=== PATIENT | female | born 1960 | race Caucasian/White ===

== ENCOUNTER 2017-07-07 10:07 | Observation (INO) | payer BC ==
[~2017-07-07] VITALS: Ht 167.6 cm; Wt 77.1 kg
[~2017-07-07 10:07] MED LIST: CARISOPRODOL350 MG PO; VITAMIN D1000 UNI1 PO
--- OUTSIDE RECORDS SUMMARY | 2017-07-07 10:10 | XMS REPORT ---
Author Author [facility] Address Unknown Phone Unavailable Care Team Providers Care Frit Coater Name Role Phone ROSENDO PRAJAPATI Unavailable Unavailable JOSE JUAN FERGUSON Unavailable Unavailable Problems This patient has no known problems. Allergies, Adverse Reactions, Alerts This patient has no known allergies or adverse reactions. Medications This patient has no known medications. Results Test Description Test Time Test Comments Text Results Atomic Results Result Comments CHEST 2 VIEWS [place] [address] Patient Name: ALICJA KAUR MR #: [id number] : 1960 Age/Sex: 56/F Req #: [id number] [facility] Physician: ROSENDO PRAJAPATI MD Ordered by: STAS LAROSE MD Report #: [id number] Location: MED/SURG Room/Bed: [facility] __ Procedure: [id number] DX/CHEST 2 VIEWS Exam Date: 04/08/17 Exam Time: 0553 REPORT STATUS: Signed EXAM: CHEST 2 VIEWS , PA and lateral DATE: 04/08/2017 6:00 AM Time stamp on exam: 0553 hours INDICATION: Right lung mass postbiopsy COMPARISON: AP view of the chest April 07, 2017 at 1419 hours FINDINGS: LINES/TUBES: None LUNGS: Stable airspace opacity/mass right lung base and right upper lateral chest PLEURA: Stable trace right apical pneumothorax. Trace right pleural effusion. HEART AND MEDIASTINUM: Stable right hilar enlargement. BONES AND SOFT TISSUES: No acute findings. IMPRESSION: No interval change. Stable trace right apical pneumothorax. Signed by: Dr. Pretty Knight M.D. on 04/08/2017 7:02 AM Dictated By: PRETTY KNIGHT MD 1 Transcribed By : JANEEN on 04/08/17701 COPY TO: STAS LAROSE MD IR CONSULT [place] [address] Patient Name: ALICJA KAUR MR #: [id number] : 1960 Age/Sex: 56/F Req #: [id number] [facility] Physician: ROSENDO PRAJAPATI MD Ordered by: KAREEM KEY MD Report #: [id number] Location: MED/SURG Room/Bed: [facility] _ Procedure: [id number] DX/IR CONSULT Exam Date: Exam Time: REPORT STATUS: Signed PROCEDURE: CT GUIDED NEEDLE PLACEMENT COMPARISON: None. INDICATIONS: RIGHT LOWER LOBE MASS FINDINGS: Written and verbal consent were obtained. Patient was placed supine. Preliminary axial images of the chest identified the mass in the right lower lobe. A safe entry route was identified and the overlying skin was prepped and draped in usual sterile fashion. Lidocaine 1% was used for local pain control. External guidelines were utilized to localize the lesion. The right upper chest wall was prepped and draped in the usual sterile fashion. 1% lidocaine was infused into the subcutaneous tissues for local anesthesia. A 19 gauge guided instrument was advanced into the mass. Axial images confirm proper position of the needle tip within the lesion. A fine-needle aspiration biopsy samples x3 were obtained with 20 gauge needles. The specimens were given to pathology, who was a bedside. Core biopsy samples x8 were obtained with the 20 gauge 2 cm throw biopsy instrument. Specimens were given to pathology. The pathologist determined the specimens to be of proper cellularity for diagnosis. Upon completion of the procedure, the needles were removed. A trace pneumothorax was visualized upon completion of the procedure. An upright PA chest radiograph was ordered. A sterile dressing was applied. There were no immediate complications. The patient tolerated the procedure well. The patient was transferred to the post procedure area in stable unchanged condition for further monitoring. The patient tolerated the procedure well, and there were no immediate post-procedural complications. CONCLUSION: Successful CT-guided fine needle aspiration and core biopsy of the right lung mass. Dictated by: Lindsey Clifford M.D. on 04/07/2017 at 13:59 Electronically approved by: Lindsey Clifford M.D. on 04/07/2017 at 13:59 Dictated By: LINDSEY CLIFFORD MD 1356 Transcribed By: SHARON on 04/07/17 1350 COPY TO: KAREEM KEY MD CHEST XRAY POST PROCEDURE [place] [address] Patient Name: ALICJA KAUR MR #: [id number] : 1960 Age/Sex: 56/F Req #: [id number] [facility] Physician: ROSENDO PRAJAPATI MD Ordered by: LINDSEY CLIFFORD MD Report #: [id number] Location: MED/SURG Room/Bed: [facility] __ Procedure: [id number] DX/CHEST XRAY POST PROCEDURE Exam Date: Exam Time: REPORT STATUS: Signed PROCEDURE: CHEST XRAY POST PROCEDURE COMPARISON: None. INDICATIONS: POST LUNG BIOPSY FINDINGS: LUNGS: Stable right lung mass. The left lung is clear. PLEURA: Small right apical pneumothorax, measuring 3.9 mm in the right midclavicular line. HEART T MEDIASTINUM: The heart is within normal size-limits. BONES T SOFT TISSUES: No acute findings. CONCLUSION: Small right apical pneumothorax status post lung biopsy. The findings were discussed with the nurse taking care of the patient at 1450 hrs on 04/07/2017. Dictated by: Lindsey Clifford M.D. on 04/07/2017 at 14:53 Electronically approved by: Lindsey Clifford M.D. on 04/07/2017 at 14:53 Dictated By: LINDSEY CLIFFORD MD 52 Transcribed By: SHARON on 04/07/171452 COPY TO: LINDSEY CLIFFORD MD CHEST XRAY POST PROCEDURE [place] [address] Patient Name: ALICJA KAUR MR #: [id number] : 1960 Age/Sex: 56/F Req #: [id number] Adm Physician: ROSENDO PRAJAPATI MD Ordered by: LINDSEY CLIFFORD MD Report #: [id number] Location: MED/SURG Room/Bed: [facility] __ Procedure: [id number] DX/CHEST XRAY POST PROCEDURE Exam Date: Exam Time: REPORT STATUS: Signed PROCEDURE: CHEST XRAY POST PROCEDURE COMPARISON: CT chest 04/05/2017. INDICATIONS: STATUS POST LUNG BIOPSY FINDINGS: LUNGS: Stable mass in the right lower lobe. The left lung is clear. PLEURA: No effusions or pneumothorax. HEART T MEDIASTINUM: The heart is within normal size -limits. Right hilar lymphadenopathy. BONES T SOFT TISSUES: No acute findings. CONCLUSION: Right lung mass. No pneumothorax status post biopsy. Dictated by: Lindsey Clifford M.D. on 04/07/2017 at 11:59 Electronically approved by: Lindsey Clifford M.D. on 04/07/2017 at 11: 59 Dictated By: LINDSEY CLIFFORD MD 115 Transcribed By: SHARON on 04/07/17 1159 COPY TO: LINDSEY CLIFFORD MD CT GUIDED BIOPSY/ASPIR/INJ/PEPE [place] [address] Patient Name: ALICJA KAUR MR #: [id number] : 1960 Age/Sex: 56/F Req #: [id number] [facility] Physician: ROSENDO PRAJAPATI MD Ordered by: KAREEM KEY MD Report #: [id number] Location: MED/SURG Room/Bed: [facility] __ Procedure: [id number] CT/CT GUIDED BIOPSY/ASPIR/INJ/PEPE Exam Date: 04/07/17 Exam Time: 1023 REPORT STATUS: Signed PROCEDURE: CT GUIDED NEEDLE PLACEMENT COMPARISON: None. INDICATIONS: RIGHT LOWER LOBE MASS FINDINGS: Written and verbal consent were obtained. Patient was placed supine. Preliminary axial images of the chest identified the mass in the right lower lobe. A safe entry route was identified and the overlying skin was prepped and draped in usual sterile fashion. Lidocaine 1% was used for local pain control. External guidelines were utilized to localize the lesion. The right upper chest wall was prepped and draped in the usual sterile fashion. 1% lidocaine was infused into the subcutaneous tissues for local anesthesia. A 19 gauge guided instrument was advanced into the mass. Axial images confirm proper position of the needle tip within the lesion. A fine-needle aspiration biopsy samples x3 were obtained with 20 gauge needles. The specimens were given to pathology, who was a bedside. Core biopsy samples x8 were obtained with the 20 gauge 2 cm throw biopsy instrument. Specimens were given to pathology. The pathologist determined the specimens to be of proper cellularity for diagnosis. Upon completion of the procedure, the needles were removed. A trace pneumothorax was visualized upon completion of the procedure. An upright PA chest radiograph was ordered. A sterile dressing was applied. There were no immediate complications. The patient tolerated the procedure well. The patient was transferred to the post procedure area in stable unchanged condition for further monitoring. The patient tolerated the procedure well, and there were no immediate post-procedural complications. CONCLUSION: Successful CT-guided fine needle aspiration and core biopsy of the right lung mass. Dictated by: Lindsey Clifford M.D. on 04/07/2017 at 13:59 Electronically approved by: Lindsey Clifford M.D. on 04/07/2017 at 13:59 Dictated By: LINDSEY CLIFFORD MD 135 Transcribed By: SHARON on 04/07/17 1359 COPY TO: KAREEM KEY MD BIOPSY LUNG [place] [address] Patient Name: ALICJA KAUR MR #: [id number] : 1960 Age/Sex: 56/F Req #: [id number] Adm Physician: ROSENDO PRAJAPATI MD Ordered by: KAREEM KEY MD Report #: [id number] Location: MED/SURG Room/Bed: [facility] _ Procedure: [id number] IR/BIOPSY LUNG Exam Date: 04/07/17 Exam Time: 1023 REPORT STATUS: Signed PROCEDURE: CT GUIDED NEEDLE PLACEMENT COMPARISON: None. INDICATIONS: RIGHT LOWER LOBE MASS FINDINGS: Written and verbal consent were obtained. Patient was placed supine. Preliminary axial images of the chest identified the mass in the right lower lobe. A safe entry route was identified and the overlying skin was prepped and draped in usual sterile fashion. Lidocaine 1% was used for local pain control. External guidelines were utilized to localize the lesion. The right upper chest wall was prepped and draped in the usual sterile fashion. 1% lidocaine was infused into the subcutaneous tissues for local anesthesia. A 19 gauge guided instrument was advanced into the mass. Axial images confirm proper position of the needle tip within the lesion. A fine-needle aspiration biopsy samples x3 were obtained with 20 gauge needles. The specimens were given to pathology, who was a bedside. Core biopsy samples x8 were obtained with the 20 gauge 2 cm throw biopsy instrument. Specimens were given to pathology. The pathologist determined the specimens to be of proper cellularity for diagnosis. Upon completion of the procedure, the needles were removed. A trace pneumothorax was visualized upon completion of the procedure. An upright PA chest radiograph was ordered. A sterile dressing was applied. There were no immediate complications. The patient tolerated the procedure well. The patient was transferred to the post procedure area in stable unchanged condition for further monitoring. The patient tolerated the procedure well, and there were no immediate post-procedural complications. CONCLUSION: Successful CT-guided fine needle aspiration and core biopsy of the right lung mass. Dictated by: Lindsey Clifford M.D. on 04/07/2017 at 13:59 Electronically approved by: Lindsey Clifford M.D. on 04/07/2017 at 13:59 Dictated By: LINDSEY CLIFFORD MD 1353 Transcribed By: SHARON on 04/07/17 1359 COPY TO: KAREEM KEY MD CT CHEST W [place] [address] Patient Name: ALICJA KAUR MR #: [id number] : 1960 Age/Sex: 56/F Req # : [id number] Adm Physician: Ordered by: JOSE JUAN FERGUSON MD Report #: [id number] Location: ER Room/Bed: Procedure: [id number] CT/CT CHEST W Exam Date: 04/05/17 Exam Time: 1254 REPORT STATUS: Signed PROCEDURE: CT scan of the chest WITH intravenous contrast, using standard protocol. TECHNIQUE: The chest was scanned utilizing a multidetector helical scanner from the lung apex through the level of the adrenal glands after the IV administration of 100 cc of Isovue 370. Coronal and sagittal multiplanar reformations were obtained. COMPARISON: None. INDICATIONS: ABNORMAL CHEST X-RAY, PULMONARY NODULES FINDINGS: Lines/tubes: None. Lungs and Airways: Focal 1 cm mass in the right middle lobe, series 3 image 74. The mass extends along the medial pleural margin, series 3 image 76. 1.05 cm nodule in the right upper lobe, series 3 image 23. Focal wedge-shaped airspace opacity in the right upper lobe, series 3 image 54. Pleura: Small right pleural effusion. Heart and mediastinum: Extensive right hilar and subcarinal lymphadenopathy is present, series 2 image 56. Additional lymphadenopathy is present along the right paratracheal region, series 2 image 37. Atherosclerotic calcifications are present in the thoracic aorta and coronary arteries. The thyroid gland is normal. The heart and pericardium are within normal limits. Soft tissues: Normal. Abdomen: Limited contrast-enhanced views of the upper abdomen show no abnormality within the visualized liver, spleen, pancreas, or kidneys. 1.7 cm nodule is present in the right thyroid lobe, series 2 image 109. Bones : Degenerative changes of the thoracic spine. IMPRESSION: Right middle lobe lung mass with mediastinal lymphadenopathy concerning for malignancy. Nodule in the right upper lobe may represent a satellite lesion. Right adrenal nodule may represent metastatic disease. Dictated by : Lindsey Clifford M.D. on 04/05/2017 at 14:21 Electronically approved by: Lindsey Clifford M.D. on 04/05/2017 at 14:21 Dictated By: LINDSEY CLIFFORD MD 1421 Transcribed By: SHARON on 04/05/17 1421 COPY TO: JOSE JUAN FERGUSON MD CHEST 2 VIEWS [facility] [address] [place] [address] Patient Name: ALICJA KAUR MR #: [id number] : 1960 Age/Sex: 56/F Req #: [id number] Adm Physician: Ordered by: JOSE JUAN FERGUSON MD Report #: [id number] Location: ER Room/Bed: Procedure: [id number] DX/CHEST 2 VIEWS Exam Date: 04/05/17 Exam Time: 0940 REPORT STATUS: Signed PROCEDURE: CHEST 2 VIEWS TECHNIQUE: PA and lateral chest INDICATION: Ribs hurt; coughing blood COMPARISON: [facility], DX, CHEST 2 VIEWS, 09/23/2012, 10:28. FINDINGS : 3.1 x 4.2 x 4.6 cm right middle lobe mass. 3 cm right upper lobe mass with adjacent airspace opacity. Lungs are otherwise clear. No pleural effusions. Normal heart size. Enlarged right hilum. Intact skeleton. CONCLUSION: 1. Multiple large right lung pulmonary nodules suggesting metastasis or primary lung malignancy. 2. Large right hilum consistent with lymphadenopathy. 3. Airspace opacity around the right upper lobe nodule suggesting pulmonary hemorrhage in the setting of hemoptysis. 4. CT chest with contrast is recommended for evaluation. Dictated by: Zaira Montana M.D. on 04/05/2017 at 10:08 Electronically approved by: Zaira Montana M.D. on 04/05/2017 at 10:08 Dictated By: ZAIRA MONTANA MD 1008 Transcribed By: SHARON on 04/05/17 1008 COPY TO: JOSE JUAN FERGUSON MD
[2017-07-07] MEDS ORDERED: SODIUM CHLORIDE 0.9% 1000ML 1,000 ML IV STA (11:17)
[2017-07-07 11:39] LABS: EOSINOPHILS # (AUTO) 0.1 (0.0-0.4); EOSINOPHILS % 6.1 % (0.0-6.0); HEMOGLOBIN 8.1 g/dL (12.0-16.0); LYMPHOCYTES # (AUTO) 0.2 (1.0-3.2); LYMPHOCYTES % 14.9 % (18.0-39.1); MEAN CORPUSCULAR HEMOGLOBIN 30.3 pg (28-32); MEAN CORPUSCULAR HGB CONC 35.5 g/dL (31-35); MEAN CORPUSCULAR VOLUME 85.4 fL (81-99); MONOCYTES # (AUTO) 0.6 (0.2-0.8); MONOCYTES % 39.9 % (4.4-11.3); NEUTROPHILS # (AUTO) 0.6 (2.1-6.9); NEUTROPHILS % 38.4 % (38.7-80.0); PLATELET COUNT 73 x10e3/uL (140-360); RED BLOOD COUNT 2.67 x10e6/uL (3.6-5.1); RED CELL DISTRIBUTION WIDTH 18.1 % (11.7-14.4)
[2017-07-07 11:42] LABS: ALANINE AMINOTRANSFERASE 13 IU/L (0-55); ALBUMIN 3.2 g/dL (3.5-5.0); ALBUMIN/GLOBULIN RATIO 0.8 (0.8-2.0); ALKALINE PHOSPHATASE 70 IU/L (40-150); BLOOD UREA NITROGEN 16 mg/dL (7-26); BUN/CREATININE RATIO 18 (6-25); CALCIUM 8.2 mg/dL (8.4-10.2); CREATINE KINASE 428 IU/L (29-168); CREATININE, SERUM 0.91 mg/dL (0.57-1.11); EST GLOMERULAR FILTRATION RATE > 60 ML/MIN (60-); GLUCOSE 109 mg/dL (74-118)
[2017-07-07 11:45] LABS: HEMATOCRIT 22.8 % (34.2-44.1)
[2017-07-07 11:53] LABS: CARBON DIOXIDE 30 mmol/L (22-29); CHLORIDE 91 mmol/L (98-107); SODIUM 136 mmol/L (136-145)
--- NOTE | 2017-07-07 12:04 | Diagnostic Imaging Report ---
PROCEDURE: A single AP view of the chest. COMPARISON: Chest 2 views 04/08/2017. INDICATIONS: LUNG CANCER/DEHYDRATION/WEAKNESS FINDINGS: Lines/tubes: None. Lungs: The lungs are well inflated and clear. There is no evidence of pneumonia or pulmonary edema. Pleura: There is no pleural effusion or pneumothorax. Elevation of the left hemidiaphragm. Heart and mediastinum: The heart and the mediastinum are unremarkable. Bones: No acute bony abnormality. IMPRESSION: Elevation of the left hemidiaphragm. Otherwise, no acute radiographic abnormality. Dictated by: Jack Cantu M.D. on 07/07/2017 at 12:04 Electronically approved by: Jack Cantu M.D. on 07/07/2017 at 12:04
[2017-07-07 12:05] LABS: ANION GAP 17.8 mmol/L (8-16)
[2017-07-07 12:06] LABS: POTASSIUM 2.8 mmol/L (3.5-5.1)
[2017-07-07] MEDS ORDERED: PROMETHAZINE 12.5MG/ NACL 0.9% 12.5 MG/50 ML BAG IV ONE (12:30)
[2017-07-07] MEDS ORDERED: POTASSIUM CHLORIDE 10 MEQ TABCR PO ONE (12:30)
[2017-07-07] MEDS ORDERED: KETOROLAC TROMETHAMINE 30 MG/ML VIAL IV STA (12:45)
[2017-07-07] MEDS ORDERED: FILGRASTIM 300 MCG/ML VIAL SC STA (13:00)
[2017-07-07 13:44] LABS: BILIRUBIN,URINE NEGATIVE (NEGATIVE); KETONES,URINE NEGATIVE (NEGATIVE); LEUKOCYTE ESTERASE ,URINE NEGATIVE (NEGATIVE); NITRITE,URINE NEGATIVE (NEGATIVE); PROTEIN,URINE DIPSTICK NEGATIVE (NEGATIVE); URINE UROBILINOGEN 0.2 mg/dL (0.2 - 1)
[2017-07-07 13:51] LABS: CLARITY,URINE SL CLOUDY (CLEAR); COLOR,URINE YELLOW (YELLOW)
[2017-07-07] MEDS ORDERED: POTASSIUM CHLORIDE 10MEQ/100ML 10 MEQ in POTASSIUM CHLORIDE 10MEQ/100ML 100 ML IV ONE (13:52)
[2017-07-07] MEDS ORDERED: POTASSIUM CHLORIDE 10MEQ/100ML 100 ML IV SCH ×2 (14:00→14:03)
[2017-07-07] MEDS: CEFEPIME HCL 1 GM VIAL IV SCH (14:05)
[2017-07-07 14:14] LABS: WBC,URINE (MAN) 0-5 /HPF (0-5)
[2017-07-07 14:15] LABS: BACTERIA,URINE FEW /HPF; EPITHELIAL CELLS,URINE FEW /LPF
[2017-07-07 14:37] LABS: BAND NEUTROPHILS % (MANUAL) 1 %; EOSINOPHILS % (MANUAL) 1 % (0-7); LYMPHOCYTES % (MANUAL) 25 % (19-48); MONOCYTES % (MANUAL) 5 % (3.4-9.0); NEUTROPHILS % (MANUAL) 62 % (40-74)
[2017-07-07 14:38] LABS: PLATELET MORPHOLOGY COMMENT FEW LARGE
[2017-07-07 14:39] LABS: ANISOCYTOSIS SLIGHT; PLATELET ESTIMATE MODERATELY DECREASED; RBC MORPHOLOGY COMMENT NORMAL
[2017-07-07] MEDS: D5NS/KCL 20MEQ 1,000 ML IV SCH (14:40)
[2017-07-07] MEDS ORDERED: POTASSIUM CHLORIDE 250 ML IV SCH (14:45)
[2017-07-07] MEDS ORDERED: ZOFRAN ODT8 MG PO (15:14)
[2017-07-07 15:38] VITALS: BP 112/67
[2017-07-07 16:25] VITALS: BP 112/67
[2017-07-07 16:28] VITALS: BP 112/67
[2017-07-07] MEDS ORDERED: PANTOPRAZOLE 40 MG 10ML VIAL IV SCH (17:00)
[2017-07-07] MEDS: SUCRALFATE 1 GM TAB PO SCH ×2 (17:27→21:36)
[2017-07-07] MEDS: PANTOPRAZOLE 40 MG 10ML VIAL IV SCH (17:27)
--- NOTE | 2017-07-07 17:38 | History and Physical ---
CHIEF COMPLAINT: This 56-year-old female with a history of lung cancer, small cell, comes in with intractable nausea and vomiting. HISTORY OF PRESENTING ILLNESS: This is Ms. Britt Pang, history of hyperlipidemia and history of lung cancer, small cell, who was in her usual state of health until the patient had her last round of chemo and she had nausea which was intractable with retching. So, patient has been tried on several courses of Zofran. It was not helping and on antibiotic, and patient did not feel any better, came into the emergency room and was found to have neutropenia and gastritis and admitted for the same. MEDICAL HISTORY: History of HLD. She is not taking any medicine for that. Small cell cancer, which obtained treatment by chemotherapy with Dr. Bañuelos. PAST SURGICAL HISTORY: Patient has had 3 back surgeries, hysterectomy, and also tonsillectomy and adenoidectomy when she was young. SOCIAL HISTORY: No history of ETOH or IV drug abuse. She stopped smoking after the diagnosis of lung cancer. REVIEW OF SYSTEMS: Negative for chest pain. Positive for some shortness of breath, especially after retching. Positive for some nausea and vomiting. No diarrhea. No rectal bleeding. No hematochezia, no hematemesis. No blurry vision, no diplopia. No paresthesias. PHYSICAL EXAMINATION GENERAL: Patient is alert and oriented x3. Very frail-looking. Has loss of hair from chemo. VITAL SIGNS: Temperature is 97.6. Pulse rate of 116, tachycardic. Respiration of 19. Pulse oximetry of 96%. HEENT: Normocephalic, atraumatic. Pupils react to light and accommodation. CARDIOVASCULAR: S1 normal. Regular rhythm. Positive for tachycardia. ABDOMEN: Tender in the epigastrium. Otherwise no rebound and no surgical belly. EXTREMITIES: No clubbing. Trace edema. LABORATORY VALUES: Patient's white count was 1.48, hemoglobin of 8.1 and hematocrit of 22.8, platelet count 73, RDW 18.1, and she seems to have pancytopenia. Electrolytes: Patient's sodium is 136, potassium is 2.8, BUN is 15, creatinine 0.91. CK was 428. Urine essentially with no white count and no leukocyte esterase either. IMAGING STUDIES: Chest x-ray shows elevation of the left hemidiaphragm, otherwise no acute radiographic abnormalities. ASSESSMENT: Intractable nausea and vomiting. The patient also has tachycardia and neutropenia. Patient has been given Neupogen. Dr. Bañuelos will be consulted. Will go ahead and keep the patient on IV Phenergan, too, as needed and, also, the patient has been put on cefepime and pantoprazole for neutropenia. Patient will also be on Carafate 1 g a.c. nightly. Further recommendation on clinical course. Will continue to monitor the patient and her lytes in the morning and her white count. Dr. Bañuelos is on consult, and we will continue to follow her. Job#: [id number] EV
[2017-07-07] MEDS ORDERED: SODIUM CHLORIDE 0.9% 250ML 250 ML IV ONE (17:45)
[2017-07-07] MEDS ORDERED: ONDANSETRON HCL INJ 2 MG/ML VIAL IV PRN (17:45)
[2017-07-07] MEDS ORDERED: HYDROCODONE/APAP 5MG-325MG TAB PO PRN (17:45)
[2017-07-07] MEDS ORDERED: FUROSEMIDE INJ 10 MG/ML 2 ML VIAL IV PRN (17:45)
--- NOTE | 2017-07-07 18:54 | Consultation ---
DATE OF CONSULTATION: July 07, 2017 REASON FOR CONSULTATION: Followup of carcinoma of the lung, on chemotherapy and radiation. Thank you very kindly, Dr. Stafford, for letting me participate in the care of this very pleasant 56-year-old female who is well known to me. 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 She called me early in the morning stating that she is feeling very poorly with body aches, chills, but did not have any fever. She has not been able to eat and has been having nausea and vomiting small amounts. There is no history of bleeding. No history of chest pain. She had some dry cough, but no sputum production. No history of urinary symptoms. No history of diarrhea. FAMILY HISTORY: As recorded in the chart. She is currently on radiation. Her chemotherapy was on hold this week because of neutropenia. PHYSICAL EXAMINATION GENERAL: Revealed an ill-looking female pale. VITAL SIGNS: As recorded in the chart. HEENT: There is no icterus. There is no palpable adenopathy. LUNGS: Revealed prolonged expiration. HEART: Size appeared within normal limits. Rhythm was regular. ABDOMEN: Mildly distended but without visceromegaly. Masses or areas of tenderness or ascites. EXTREMITIES: Did not reveal any calf muscle tenderness. No areas of bone tenderness were noted. LABORATORY EVALUATION: Revealed a white count of 1.48, hemoglobin 8.1 and platelet count of 73,000. Differential count revealed 38% neutrophils. Serum chemistries were normal, except for hypokalemia with potassium of 2.8. Renal function was normal. Chest x-ray was negative for any acute changes. Previous mass appears to have almost completely resolved. IMPRESSION: Small cell carcinoma of the lung, on chemoradiation therapy admitted with pancytopenia, hypokalemia, dehydration. The patient received Neupogen in the emergency room. I will also transfuse her with 2 units of packed red cells. She is receiving potassium supplements and IV hydration. I will follow the patient and monitor her counts. Job#: [id number] [id number]
[2017-07-07 19:05] VITALS: BP 92/53
[2017-07-07 20:00] VITALS: BP 92/53
[2017-07-08] VITALS (7 sets, daily range): BP systolic 91–124; BP diastolic 53–90
[2017-07-08] MEDS: CEFEPIME HCL 1 GM VIAL IV SCH ×2 (01:00→12:01)
[2017-07-08] MEDS ORDERED: ACETAMINOPHEN 325 MG TAB PO PRN (01:15)
[2017-07-08] MEDS: D5NS/KCL 20MEQ 1,000 ML IV SCH ×2 (03:20→16:15)
[2017-07-08 06:35] LABS: BASOPHILS % 0.9 % (0.0-1.0); EOSINOPHILS # (AUTO) 0.1 (0.0-0.4); EOSINOPHILS % 4.4 % (0.0-6.0); LYMPHOCYTES # (AUTO) 0.2 (1.0-3.2); LYMPHOCYTES % 10.1 % (18.0-39.1); MEAN CORPUSCULAR HEMOGLOBIN 30.3 pg (28-32); MEAN CORPUSCULAR HGB CONC 34.3 g/dL (31-35); MEAN CORPUSCULAR VOLUME 88.3 fL (81-99); MONOCYTES # (AUTO) 0.6 (0.2-0.8); MONOCYTES % 26.9 % (4.4-11.3); NEUTROPHILS # (AUTO) 1.2 (2.1-6.9); NEUTROPHILS % 51.1 % (38.7-80.0); PLATELET COUNT 83 x10e3/uL (140-360); RED BLOOD COUNT 2.31 x10e6/uL (3.6-5.1); RED CELL DISTRIBUTION WIDTH 18.2 % (11.7-14.4)
[2017-07-08 06:54] LABS: HEMATOCRIT 20.4 % (34.2-44.1)
[2017-07-08 07:04] LABS: ALANINE AMINOTRANSFERASE 12 IU/L (0-55); ALBUMIN 2.5 g/dL (3.5-5.0); ALBUMIN/GLOBULIN RATIO 0.7 (0.8-2.0); ALKALINE PHOSPHATASE 61 IU/L (40-150); ANION GAP 14.5 mmol/L (8-16); BLOOD UREA NITROGEN 14 mg/dL (7-26); BUN/CREATININE RATIO 18 (6-25); CALCIUM 7.9 mg/dL (8.4-10.2); CARBON DIOXIDE 25 mmol/L (22-29); CHLORIDE 102 mmol/L (98-107); CREATININE, SERUM 0.79 mg/dL (0.57-1.11); EST GLOMERULAR FILTRATION RATE > 60 ML/MIN (60-); GLUCOSE 91 mg/dL (74-118); POTASSIUM 3.5 mmol/L (3.5-5.1); SODIUM 138 mmol/L (136-145)
[2017-07-08 07:43] LABS: MAGNESIUM 0.8 MG/DL (1.3-2.1)
[2017-07-08] MEDS ORDERED: MAGNESIUM SULFATE 2GM/50ML 50 ML IV ONE (08:15)
[2017-07-08] MEDS: PANTOPRAZOLE 40 MG 10ML VIAL IV SCH ×2 (08:34→16:42)
[2017-07-08] MEDS: SUCRALFATE 1 GM TAB PO SCH ×4 (08:34→22:09)
[2017-07-08] MEDS ORDERED: PROCHLORPERAZIN10 MG (08:42)
[2017-07-08 10:02] LABS: EOSINOPHILS % (MANUAL) 4 % (0-7); LYMPHOCYTES % (MANUAL) 10 % (19-48); MONOCYTES % (MANUAL) 8 % (3.4-9.0); NEUTROPHILS % (MANUAL) 78 % (40-74)
[2017-07-08 10:03] LABS: ANISOCYTOSIS SLIGHT; MICROCYTOSIS SLIGHT
[2017-07-08 10:04] LABS: RBC MORPHOLOGY COMMENT NORMAL
[2017-07-08 10:05] LABS: PLATELET ESTIMATE SLIGHTLY DECREASED; PLATELET MORPHOLOGY COMMENT NORMAL
[2017-07-08] MEDS ORDERED: SODIUM CHLORIDE 0.9% 250ML 250 ML ONE ×2 (12:24→22:22)
[2017-07-09] VITALS: BP 99/57
[2017-07-09] MEDS: CEFEPIME HCL 1 GM VIAL IV SCH (01:17)
[2017-07-09 04:00] VITALS: BP 114/73
[2017-07-09] MEDS: D5NS/KCL 20MEQ 1,000 ML IV SCH (06:00)
[2017-07-09 06:32] LABS: BASOPHILS # (AUTO) 0.1 (0.0-0.1); BASOPHILS % 1.2 % (0.0-1.0); EOSINOPHILS # (AUTO) 0.1 (0.0-0.4); EOSINOPHILS % 2.2 % (0.0-6.0); HEMATOCRIT 28.9 % (34.2-44.1); HEMOGLOBIN 10.1 g/dL (12.0-16.0); LYMPHOCYTES # (AUTO) 0.3 (1.0-3.2); LYMPHOCYTES % 8.2 % (18.0-39.1); MEAN CORPUSCULAR HEMOGLOBIN 29.4 pg (28-32); MEAN CORPUSCULAR HGB CONC 34.9 g/dL (31-35); MONOCYTES # (AUTO) 0.9 (0.2-0.8); MONOCYTES % 22.5 % (4.4-11.3); NEUTROPHILS # (AUTO) 2.3 (2.1-6.9); NEUTROPHILS % 56.5 % (38.7-80.0); PLATELET COUNT 130 x10e3/uL (140-360); RED BLOOD COUNT 3.44 x10e6/uL (3.6-5.1); RED CELL DISTRIBUTION WIDTH 18.8 % (11.7-14.4)
[2017-07-09 06:52] LABS: ALANINE AMINOTRANSFERASE 10 IU/L (0-55); ALBUMIN 2.6 g/dL (3.5-5.0); ALBUMIN/GLOBULIN RATIO 0.7 (0.8-2.0); ALKALINE PHOSPHATASE 61 IU/L (40-150); ANION GAP 13.1 mmol/L (8-16); BLOOD UREA NITROGEN 9 mg/dL (7-26); BUN/CREATININE RATIO 13 (6-25); CALCIUM 8.3 mg/dL (8.4-10.2); CARBON DIOXIDE 27 mmol/L (22-29); CHLORIDE 102 mmol/L (98-107); EST GLOMERULAR FILTRATION RATE > 60 ML/MIN (60-); GLUCOSE 99 mg/dL (74-118); POTASSIUM 3.1 mmol/L (3.5-5.1); SODIUM 139 mmol/L (136-145)
[2017-07-09] MEDS: SUCRALFATE 1 GM TAB PO SCH (07:30)
[2017-07-09 08:20] LABS: LYMPHOCYTES % (MANUAL) 9 % (19-48); MONOCYTES % (MANUAL) 18 % (3.4-9.0); NEUTROPHILS % (MANUAL) 73 % (40-74); NUCLEATED RED BLOOD CELLS 1
[2017-07-09 08:21] LABS: ANISOCYTOSIS SLIG; HYPOCHROMASIA SLIGHT; PLATELET ESTIMATE SLIGHTLY DECREASED; PLATELET MORPHOLOGY COMMENT FEW LARGE; POIKILOCYTOSIS SLIG; RBC MORPHOLOGY COMMENT NORMAL
[2017-07-09 08:44] VITALS: BP 133/77
[2017-07-09] MEDS ORDERED: POTASSIUM CHLORIDE 20 MEQ TAB CR PO ONE (09:00)
[2017-07-09] MEDS: PANTOPRAZOLE 40 MG 10ML VIAL IV SCH (09:00)
== END 2017-07-09 09:32 | disposition home or self-care (01) ==
LOC: ER 10:07 → IMCU 14:51 → INTOOBSV 07-08 10:18 → OBSVTOIN 07-08 10:18
PROVIDERS: ADMIT Family Medicine; ATTEND Family Medicine
DX: D70.1 Agranulocytosis secondary to cancer chemotherapy (principal); E86.0 Dehydration; K29.00 Acute gastritis without bleeding; D61.810 Antineoplastic chemotherapy induced pancytopenia; E87.6 Hypokalemia; D64.9 Anemia, unspecified; D69.6 Thrombocytopenia, unspecified; C34.90 Malignant neoplasm of unspecified part of unspecified bronchus or lung; E78.5 Hyperlipidemia, unspecified; Z87.891 Personal history of nicotine dependence; R00.0 Tachycardia, unspecified
CPT/HCPCS: 36415; 36430 ×2; 71045; 80053; 81001; 82550; 82553; 83735; 84484; 85025; 86850; 86900; 86920; 87040; 93005; 99284; G0378; J0692; J1442; J1885; J2550; J7030; J7050; P9016 ×2

== ENCOUNTER 2017-08-07 08:47 | Emergency (ER) | payer BC ==
[~2017-08-07] VITALS: Ht 167.6 cm; Wt 72.1 kg
[~2017-08-07 08:47] MED LIST changes: +PROCHLORPERAZIN10 MG; +ZOFRAN ODT8 MG PO
--- OUTSIDE RECORDS SUMMARY | 2017-08-07 08:50 | XMS REPORT | Continuity of Care Document ---
Author Author [facility] Organization [facility] Address [address] [place] [address] Phone Unavailable Care Team Providers Care Channel Opener Outsoles Name Role Phone DIANDRA WALDEN MD PCP Insurance Providers Guarantor Alicja Kaur Address [address] [place] [address] Email [email or web address] [facility] Policy Number [id number] Subscriber's Name Alicja Kaur Relationship 18 Self / Same As Patient Group Number [id number] Group Name [facility] 1 Effective Date 17 Advance Directives Directive Response Recorded Date/Time Does the patient have an advance directive? No 07/07/17 4:25pm If yes, is advance directive on file with [facility]? No 07/07/17 4:25pm If not on file with [facility] will patient provide a copy? No 07/07/17 4:25pm Do you have a Directive to Physician? No 07/07/17 10:24am Do you have a Medical Power of [employer]? No 07/07/17 10:24am Do you have an out of hospital Do Not Resuscitate Order? No 07/07/17 10:24am Do you have any special needs we should be aware of? No 07/07/17 10:24am Do you have a support person here with you today? Yes 07/07/17 10:24am Did patient receive Notice of Privacy Practices? Yes 07/07/17 10:24am Did patient receive patient rights and responsibilities? Yes 07/07/17 10:24am Problems Medical Problem Onset Date Status Lung cancer Unknown Acute UTI (urinary tract infection) Unknown Acute Medications Current Home Medications Medication Dose Units Route Directions Days Qty Instructions Start Date Cholecalciferol (Vitamin D3) (Vitamin D) 1,000 Unit Tablet 1,000 Unit Oral 30 Tab Ondansetron (Zofran Odt) 8 Mg Tab.rapdis 8 Mg Oral Twice A Day Prochlorperazine Maleate 10 Mg Tablet Past Home Medications Medication Directions Ordered Status Carisoprodol 350 Mg Tablet, Mg Oral Daily Discontinued Social History Social History Problem Response Recorded Date/Time Onset Date Status Hx Psychiatric Problems No 07/07/2017 4:25pm Not Applicable Not Applicable Hx Eating Disorder No 07/07/2017 4:25pm Not Applicable Not Applicable Hx Substance Use Disorder No 07/07/2017 4:25pm Not Applicable Not Applicable Hx Depression No 07/07/2017 4:25pm Not Applicable Not Applicable Hx Alcohol Use Y - SOCIALLY 07/07/2017 4:25pm Not Applicable Not Applicable Hx Substance Use Treatment No 07/07/2017 4:25pm Not Applicable Not Applicable Hx Physical Abuse No 07/07/2017 4:25pm Not Applicable Not Applicable Hospital Discharge Instructions No hospital discharge instruction information available. Plan of Care Discharge Date 07/09/17 9:32am Disposition HOME, SELF-CARE Instructions/Education Provided Anemia - Oncology Prescriptions See Medication Section Referrals FARHAT BAÑUELOS MD (Oncology) Order Date: 1-2 Weeks Entered Date: 07/09/2017 9:01am Address: [address] [place] [id number] Additional Instructions/Education continue all home medications Follow up with Dr. Bañuelos Functional Status Query Response Date Recorded Assistive Devices None July 07, 2017 4:28pm Ambulation Ability Independent July 07, 2017 4:28pm Toileting Ability Independent July 07, 2017 4:28pm Allergies, Adverse Reactions, Alerts Allergen Type Severity Reaction Status Last Updated Codeine Allergy Mild MIGRAINE Active 07/07/17 Immunizations No immunization information available. Vital Signs Acute Vital Signs Vital Response Date/Time Temperature (Fahrenheit) 95.7 degrees F (97.6 - 99.5) 07/09/2017 8:44am Pulse Pulse Rate (adult) 80 bpm (60 - 90) 07/09/2017 8:44am Respiratory Rate 18 bpm (12 - 24) 07/09/2017 8:44am Blood Pressure 133/77 mm Hg 07/09/2017 8:44am Height 5 ft 6 in 07/07/2017 10:20am Weight 170.06 lb 07/09/2017 8:45am Body Mass Index 27.4 kg/m^2 07/09/2017 8:45am Results Laboratory Results Test Name Result Units Flags Reference Collection Date/Time Result Date/ Time Comments Prothrombin Time 13.2 seconds 11.9-14.5 04/07/2017 7:00am 04/07/2017 7: 23am Prothromb Time International Ratio 0.95 04/07/2017 7:00am 2016 7:23am Oral Anticoagulant Therapy INR Values: 1. Low Intensity Therapy 1.5 - 2.0 2. Moderate Intensity Therapy 2.0 - 3.0 3. High Intensity Therapy(1) 2.5 - 3.5 4. High Intensity Therapy(2) 3.0 - 4.0 5. Panic Value INR > 5.0 Activated Partial Thromboplast Time 31.9 seconds 23.8-35.5 04/07/2017 7: 00am 04/07/2017 7:23am D-Dimer Quantitative (PE/DVT) 1.56 ug/mLFEU H 0.00-0.45 04/06/2017 11: 00am 04/06/2017 12:11pm As with all in vitro diagnostic tests, the test results should be interpreted by the physician in conjunction with clinical findings and other test results. Test results are reported in NEW D-dimer units(ug/mLFEU). Iron Level 18 ug/dL L 50-170 04/09/2017 9:52am 04/09/2017 10:25am Total Iron Binding Capacity 249 ug/dL L 261-478 04/09/2017 9:52am 2016 10:25am Percent Iron Saturation 7 % L 15-50 04/09/2017 9:52am 04/09/2017 10: 25am Transferrin 178 mg/dL L 180-382 04/09/2017 9:52am 04/09/2017 10:25am B-Type Natriuretic Peptide 18.4 pg/mL 0-100 04/06/2017 10:56am 2016 12:19pm Lipase 21 U/L 8-78 04/06/2017 10:56am 04/06/2017 12:32pm White Blood Count 4.13 x10e3/uL # L 4.8-10.8 07/09/2017 5:55am 2017 6:46am Red Blood Count 3.44 x10e6/uL L 3.6-5.1 07/09/2017 5:55am 07/09/2017 6: 46am Hemoglobin 10.1 g/dL L 12.0-16.0 07/09/2017 5:55am 07/09/2017 6:46am Hematocrit 28.9 % L 34.2-44.1 07/09/2017 5:55am 07/09/2017 6:46am Mean Corpuscular Volume 84.0 fL # 81-99 07/09/2017 5:55am 07/09/2017 6: 46am Mean Corpuscular Hemoglobin 29.4 pg 28-32 07/09/2017 5:55am 07/09/2017 6:46am Mean Corpuscular Hemoglobin Concent 34.9 g/dL 31-35 07/09/2017 5:55am 07/09/2017 6:46am Red Cell Distribution Width 18.8 % H 11.7-14.4 07/09/2017 5:55am 2017 6:46am Platelet Count 130 x10e3/uL L 140-360 07/09/2017 5:55am 07/09/2017 6: 46am Neutrophils (%) (Auto) 56.5 % 38.7-80.0 07/09/2017 5:55am 07/09/2017 6: 46am Lymphocytes (%) (Auto) 8.2 % L 18.0-39.1 07/09/2017 5:55am 07/09/2017 6: 46am Monocytes (%) (Auto) 22.5 % H 4.4-11.3 07/09/2017 5:55am 07/09/2017 6: 46am Eosinophils (%) (Auto) 2.2 % 0.0-6.0 07/09/2017 5:55am 07/09/2017 6: 46am Basophils (%) (Auto) 1.2 % H 0.0-1.0 07/09/2017 5:55am 07/09/2017 6: 46am IM GRANULOCYTES % 9.4 % H 0.0-1.0 07/09/2017 5:55am 07/09/2017 6:46am Neutrophils # (Auto) 2.3 2.1-6.9 07/09/2017 5:55am 07/09/2017 6:46am Lymphocytes # (Auto) 0.3 L 1.0-3.2 07/09/2017 5:55am 07/09/2017 6: 46am Monocytes # (Auto) 0.9 H 0.2-0.8 07/09/2017 5:55am 07/09/2017 6:46am Eosinophils # (Auto) 0.1 0.0-0.4 07/09/2017 5:55am 07/09/2017 6:46am Basophils # (Auto) 0.1 0.0-0.1 07/09/2017 5:55am 07/09/2017 6:46am Absolute Immature Granulocyte (auto 0.39 x10e3/uL H 0-0.1 07/09/2017 5: 55am 07/09/2017 6:46am Differential Total Cells Counted 22 07/09/2017 5:55am 07/09/2017 8: 21am Neutrophils % (Manual) 73 % 40-74 07/09/2017 5:55am 07/09/2017 8:21am Band Neutrophils % 1 % 07/07/2017 11:30am 07/07/2017 2:39pm Lymphocytes % (Manual) 9 % L 19-48 07/09/2017 5:55am 07/09/2017 8:21am Monocytes % (Manual) 18 % H 3.4-9.0 07/09/2017 5:55am 07/09/2017 8:21am Eosinophils % (Manual) 4 % 0-7 07/08/2017 6:00am 07/08/2017 10:06am Basophils % (Manual) 1 % 0-1.5 07/07/2017 11:30am 07/07/2017 2:39pm Reactive Lymphocytes 5 07/07/2017 11:30am 07/07/2017 2:39pm Nucleated Red Blood Cells 1 07/09/2017 5:55am 07/09/2017 8:21am Platelet Estimate SLIGHTLY DECREASED 07/09/2017 5:55am 07/09/2017 8 :21am Platelet Morphology Comment FEW LARGE 07/09/2017 5:55am 07/09/2017 8:21am Hypochromasia SLIGHT 07/09/2017 5:55am 07/09/2017 8:21am Poikilocytosis SLIG 07/09/2017 5:55am 07/09/2017 8:21am Anisocytosis SLIG 07/09/2017 5:55am 07/09/2017 8:21am Microcytosis SLIGHT 07/08/2017 6:00am 07/08/2017 10:06am Red Cell Morphology Comment NORMAL 07/09/2017 5:55am 07/09/2017 8: 21am Urine Color YELLOW YELLOW 07/07/2017 1:20pm 07/07/2017 1:51pm Urine Clarity SL CLOUDY CLEAR 07/07/2017 1:20pm 07/07/2017 1:51pm Urine Specific [place] 1.010 1.010-1.025 07/07/2017 1:20pm 2017 1:51pm Urine pH 7 5 - 7 07/07/2017 1:20pm 07/07/2017 1:51pm Urine Leukocyte Esterase NEGATIVE NEGATIVE 07/07/2017 1:20pm 2017 1:51pm Urine Nitrite NEGATIVE NEGATIVE 07/07/2017 1:20pm 07/07/2017 1:51pm Urine Protein NEGATIVE NEGATIVE 07/07/2017 1:20pm 07/07/2017 1:51pm Urine Glucose (UA) NEGATIVE NEGATIVE 07/07/2017 1:20pm 07/07/2017 1: 51pm Urine Ketones NEGATIVE NEGATIVE 07/07/2017 1:20pm 07/07/2017 1:51pm Urine Urobilinogen 0.2 mg/dL 0.2 - 1 07/07/2017 1:20pm 07/07/2017 1: 51pm Urine Bilirubin NEGATIVE NEGATIVE 07/07/2017 1:20pm 07/07/2017 1: 51pm Urine Blood TRACE H NEGATIVE 07/07/2017 1:20pm 07/07/2017 1:51pm Urine WBC 0-5 /HPF 0-5 07/07/2017 1:20pm 07/07/2017 2:15pm Urine RBC 6-10 /HPF H 0-5 07/07/2017 1:20pm 07/07/2017 2:15pm Urine Bacteria FEW /HPF NONE 07/07/2017 1:20pm 07/07/2017 2:15pm Urine Epithelial Cells FEW /LPF NONE 07/07/2017 1:20pm 07/07/2017 2: 15pm Sodium Level 139 mmol/L 136-145 07/09/2017 5:55am 07/09/2017 6:52am Potassium Level 3.1 mmol/L L 3.5-5.1 07/09/2017 5:55am 07/09/2017 6: 52am Chloride Level 102 mmol/L 98-107 07/09/2017 5:55am 07/09/2017 6:52am Carbon Dioxide Level 27 mmol/L 22-29 07/09/2017 5:55am 07/09/2017 6: 52am Anion Gap 13.1 mmol/L 8-16 07/09/2017 5:55am 07/09/2017 6:52am Blood Urea Nitrogen 9 mg/dL 7-26 07/09/2017 5:55am 07/09/2017 6:52am Creatinine 0.70 mg/dL 0.57-1.11 07/09/2017 5:55am 07/09/2017 6:52am BUN/Creatinine Ratio 13 6-25 07/09/2017 5:55am 07/09/2017 6:52am Estimat Glomerular Filtration Rate > 60 ML/MIN 60- 07/09/2017 5:55am 6:52am Ranges were taken from the National Kidney Disease Education Program and the National [employer] literature. Reference ranges: 60 or greater: Normal 16-59 (for 3 consecutive months): Chronic kidney disease 15 or less: Kidney failure Glucose Level 99 mg/dL 74-118 07/09/2017 5:55am 07/09/2017 6:52am Calcium Level 8.3 mg/dL L 8.4-10.2 07/09/2017 5:55am 07/09/2017 6:52am Magnesium Level 0.8 MG/DL *L 1.3-2.1 07/08/2017 6:00am 07/08/2017 7:43am Results called to RYAN MOORE RN at 0742 on 07/08/17 by Mariam Whittington. RB OK. This test has been rerun and double checked for accuracy. Total Bilirubin 0.8 mg/dL 0.2-1.2 07/09/2017 5:55am 07/09/2017 6:52am Aspartate Amino Transf (AST/SGOT) 17 IU/L 5-34 07/09/2017 5:55am 2017 6:52am Alanine Aminotransferase (ALT/SGPT) 10 IU/L 0-55 07/09/2017 5:55am 01/2018 6:52am Total Protein 6.3 g/dL L 6.5-8.1 07/09/2017 5:55am 07/09/2017 6:52am Albumin 2.6 g/dL L 3.5-5.0 07/09/2017 5:55am 07/09/2017 6:52am Globulin 3.7 g/dL H 2.3-3.5 07/09/2017 5:55am 07/09/2017 6:52am Albumin/Globulin Ratio 0.7 L 0.8-2.0 07/09/2017 5:55am 07/09/2017 6: 52am Alkaline Phosphatase 61 IU/L 40-150 07/09/2017 5:55am 07/09/2017 6: 52am Creatine Kinase 428 IU/L H 29-168 07/07/2017 11:15am 07/07/2017 11:42am Creatine Kinase MB 0.80 ng/mL 0-5.0 07/07/2017 11:15am 07/07/2017 11: 49am Troponin I 0.021 ng/mL 0-0.300 07/07/2017 11:15am 07/07/2017 11:49am Microbiology Results Procedure Source Organism/Result Collection Date/Time Result Date/Time Result Status Blood Culture Blood NO GROWTH AFTER 24 HOURS 07/07/2017 1:20pm 07/08/2017 1:37pm Preliminary Procedures Procedure Status Date Provider(s) DRAINAGE OF RIGHT LOWER LUNG LOBE, PERC ENDO APPROACH, DIAGN Completed ROSENDO PRAJAPATI MD EXCISION OF RIGHT LOWER LUNG LOBE, PERC ENDO APPROACH, DIAGN Completed ROSENDO PRAJAPATI MD X-ray of chest, two views Active 04/05/17 JOSE JUAN FERGUSON MD Computed tomography of chest with contrast Active 04/05/17 [address]ER[address] MD [address] orbit/ear/fossa w/o dye Active 04/07/17 KAREEM KEY MD X-ray of chest, two views Active 04/08/17 STAS LAROSE MD Encounters Encounter Location Arrival/Admit Date Discharge/Depart Date Attending Provider Discharged Inpatient (obs) [facility] 07/07/17 2:51pm 01/18 9:32am CLAYTON MENESES MD Discharged Inpatient [facility] 04/06/17 11:48am 2:19pm ROSENDO PRAJAPATI MD Departed Emergency Room [facility] 04/05/17 9:03am 3:54pm JOSE JUAN FERGUSON MD
[2017-08-07] MEDS ORDERED: KETOROLAC TROMETHAMINE 60 MG/2 ML VIAL IM ONE (09:00)
[2017-08-07] MEDS ORDERED: ZOFRAN ODT4 MG (09:32)
[2017-08-07] MEDS ORDERED: PROMETHAZINE HC25 M1 PO (09:32)
[2017-08-07] MEDS ORDERED: TRAMADOL HCL100 MG (09:32)
== END 2017-08-07 09:55 | disposition home or self-care (01) ==
LOC: FSED 08:47
DX: S93.492A Sprain of other ligament of left ankle, initial encounter (principal); R26.2 Difficulty in walking, not elsewhere classified; X50.1XXA Overexertion from prolonged static or awkward postures, initial encounter; Y92.008 Other place in unspecified non-institutional (private) residence as the place of occurrence of the external cause
CPT/HCPCS: 73610; 99283; J1885

== ENCOUNTER 2017-11-02 16:52 | Inpatient (IN) | payer BC ==
[~2017-11-02] VITALS: Ht 167.6 cm; Wt 72.1 kg
[~2017-11-02 16:52] MED LIST changes: +PROMETHAZINE HC25 M1 PO; +TRAMADOL HCL100 MG; +ZOFRAN ODT4 MG
[2017-11-02] MEDS ORDERED: ACETAMINOPHEN 325 MG TAB PO STA (17:05)
[2017-11-02 17:10] LABS: BASOPHILS % 0.3 % (0.0-1.0); EOSINOPHILS # (AUTO) 0.7 (0.0-0.4); EOSINOPHILS % 9.9 % (0.0-6.0); HEMATOCRIT 36.2 % (34.2-44.1); HEMOGLOBIN 12.9 g/dL (12.0-16.0); LYMPHOCYTES # (AUTO) 0.5 (1.0-3.2); LYMPHOCYTES % 7.8 % (18.0-39.1); MEAN CORPUSCULAR HEMOGLOBIN 33.4 pg (28-32); MEAN CORPUSCULAR HGB CONC 35.6 g/dL (31-35); MEAN CORPUSCULAR VOLUME 93.8 fL (81-99); MONOCYTES # (AUTO) 1.1 (0.2-0.8); MONOCYTES % 16.5 % (4.4-11.3); NEUTROPHILS # (AUTO) 4.3 (2.1-6.9); PLATELET COUNT 265 x10e3/uL (140-360); RED BLOOD COUNT 3.86 x10e6/uL (3.6-5.1); RED CELL DISTRIBUTION WIDTH 11.8 % (11.7-14.4)
[2017-11-02 17:12] LABS: BILIRUBIN,URINE NEGATIVE (NEGATIVE); CLARITY,URINE SL CLOUDY (CLEAR); COLOR,URINE YELLOW (YELLOW); KETONES,URINE NEGATIVE (NEGATIVE); LEUKOCYTE ESTERASE ,URINE TRACE (NEGATIVE); NITRITE,URINE NEGATIVE (NEGATIVE); PROTEIN,URINE DIPSTICK NEGATIVE (NEGATIVE); URINE UROBILINOGEN 0.2 mg/dL (0.2 - 1)
[2017-11-02 17:22] LABS: BACTERIA,URINE MANY /HPF; EPITHELIAL CELLS,URINE MODERATE /LPF
[2017-11-02 17:26] LABS: ALANINE AMINOTRANSFERASE 20 IU/L (0-55); ALBUMIN 3.3 g/dL (3.5-5.0); ALBUMIN/GLOBULIN RATIO 0.7 (0.8-2.0); ALKALINE PHOSPHATASE 89 IU/L (40-150); BLOOD UREA NITROGEN 16 mg/dL (7-26); BUN/CREATININE RATIO 21 (6-25); CALCIUM 9.8 mg/dL (8.4-10.2); CARBON DIOXIDE 23 mmol/L (22-29); CHLORIDE 96 mmol/L (98-107); CREATININE, SERUM 0.78 mg/dL (0.57-1.11); EST GLOMERULAR FILTRATION RATE > 60 ML/MIN (60-); GLUCOSE 102 mg/dL (74-118); SODIUM 130 mmol/L (136-145)
[2017-11-02] MEDS ORDERED: WATER STERILE 10 ML VIAL IV PRN (20:00)
[2017-11-02] MEDS ORDERED: ASPIRIN 81 MG CHEW TAB PO ONE (20:15)
[2017-11-02 20:20] LABS: CREATINE KINASE 64 IU/L (29-168)
[2017-11-02] MEDS: VANCOMYCIN 1GM/NS 250 ML 250 ML IV SCH (20:50)
--- NOTE | 2017-11-02 20:52 | Diagnostic Imaging Report ---
PROCEDURE: Frontal and lateral views of the chest. COMPARISON: [facility], DX, CHEST SINGLE (PORTABLE), 07/07/2017, 11:38. INDICATIONS: lung cancer, sob, cough FINDINGS: Lines/tubes: None. Lungs: Lungs are well-inflated. Increased lucency in bilateral upper lungs suggesting COPD. Interval development of patchy airspace opacity in the right lower lung and right midlung. Interval development of left retrocardiac opacity. Pleura: Stable elevation of the left hemidiaphragm. Heart and mediastinum: Cardiac silhouette is unremarkable. Pulmonary vascular tree is normal. Bones: No acute bony abnormality. IMPRESSION: 1. increased lucency in bilateral upper lungs suggesting COPD. Interval development of patchy opacity in the right lower lung and right midlung. This may reflect pneumonia, in the appropriate clinical setting. Given the prior history of lung cancer, disease progression is also a consideration. 2. Left retrocardiac opacity may reflect atelectasis secondary to elevation of the left hemidiaphragm. Zak King M.D. Dictated by: Zak King M.D. on 11/02/2017 at 19:04 Electronically approved by: Zak King M.D. on 11/02/2017 at 19:04
[2017-11-02] MEDS: SODIUM CHLORIDE 0.9% 1000ML 1,000 ML IV SCH (21:00)
[2017-11-02] MEDS ORDERED: VANCOMYCIN HCL 1GM/NS 250 ML BAG IV SCH (21:00)
[2017-11-02] MEDS: IPRATROPIUM BROMIDE 0.02% 2.5 ML NEB NEB SCH (21:30)
[2017-11-02] MEDS: ALBUTEROL SULF 0.083% NEB SOLN 3 ML NEB NEB SCH (21:30)
[2017-11-02] MEDS ORDERED: SODIUM CHLORIDE 0.9% 50ML 50 ML ONE (22:16)
[2017-11-02] MEDS: AZTREONAM 2 GM VIAL IV SCH (22:23)
[2017-11-03] VITALS (8 sets, daily range): BP systolic 96–111; BP diastolic 58–65
[2017-11-03] MEDS: IPRATROPIUM BROMIDE 0.02% 2.5 ML NEB NEB SCH ×3 (01:30→11:00)
[2017-11-03] MEDS ORDERED: ACETAMINOPHEN 325 MG TAB PO PRN (01:30)
[2017-11-03] MEDS: ALBUTEROL SULF 0.083% NEB SOLN 3 ML NEB NEB SCH ×6 (01:30→19:00)
[2017-11-03 01:38] LABS: CREATINE KINASE 70 IU/L (29-168)
[2017-11-03] MEDS: AZTREONAM 2 GM VIAL IV SCH ×3 (08:33→23:49)
[2017-11-03] MEDS: SODIUM CHLORIDE 0.9% 1000ML 1,000 ML IV SCH ×2 (09:27→12:32)
[2017-11-03] MEDS: VANCOMYCIN 1GM/NS 250 ML 250 ML IV SCH ×2 (09:28→20:13)
[2017-11-03] MEDS: PROMETHAZINE HCL 25 MG TAB PO SCH (09:28)
[2017-11-03 09:51] LABS: CREATINE KINASE 120 IU/L (29-168)
[2017-11-03] MEDS: ONDANSETRON HCL 4 MG ORAL DISINTEGRATING TAB SL SCH ×3 (12:32→23:49)
[2017-11-03] MEDS: PREDNISONE 20 MG TAB PO SCH (13:54)
--- NOTE | 2017-11-03 15:58 | Consultation ---
DATE OF CONSULTATION: November 03, 2017 PULMONARY CONSULTATION A patient of Dr. Escobedo, Dr. Silver, Dr. Bañuelos. An unfortunate 57-year-old woman with a history of small cell carcinoma, admitted with a cough, ill for several weeks according to the family. Recently underwent cranial radiation for brain metastasis. Pancytopenic on admission but is recovering. SHE IS ALLERGIC TO CODEINE. Her medications include vitamin D, Phenergan, Compazine, Zofran, tramadol. She has had hysterectomy, back surgery, transthoracic needle biopsy of the lung. She is an ex-smoker. Family history positive for multiple types of cancer in first-degree relatives. She was born in [place]. 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 PHYSICAL EXAMINATION GENERAL: A well-developed white female looking somewhat older than her stated age. VITAL SIGNS: Temperature 98, pulse 80, respirations 18, blood pressure 132/71. HEAD: Bald. LUNGS: Coarsely throughout the right chest. Bronchial breath sounds. HEART: Regular rhythm. ABDOMEN: Nontender. EXTREMITIES: Nonedematous. IMPRESSION: One of postobstructive pneumonia. PLAN: IV antibiotics. Patient requests DNR but then changes her mind as she has something . Will add anaerobic cover to current excellent regimen, bronchodilators, chest physiotherapy. Thank you for this kind referral. Job#: [id number] LINDSAY
[2017-11-03] MEDS: ENOXAPARIN SOD INJ 40 MG/0.4 ML SYR SC SCH (17:03)
[2017-11-03] MEDS: DOXYCYCLINE HYCLATE TABLET 100 MG TAB PO SCH (17:03)
[2017-11-04] VITALS (7 sets, daily range): BP systolic 93–114; BP diastolic 54–59
[2017-11-04] MEDS: IPRATROPIUM BROMIDE 0.02% 2.5 ML NEB NEB SCH ×6 (04:54→23:20)
[2017-11-04] MEDS: ONDANSETRON HCL 4 MG ORAL DISINTEGRATING TAB SL SCH ×4 (05:28→23:49)
[2017-11-04] MEDS: ALBUTEROL SULF 0.083% NEB SOLN 3 ML NEB NEB SCH ×6 (07:00→23:23)
[2017-11-04] MEDS: PREDNISONE 20 MG TAB PO SCH (08:43)
[2017-11-04] MEDS: AZTREONAM 2 GM VIAL IV SCH ×3 (08:43→23:49)
[2017-11-04] MEDS: DOXYCYCLINE HYCLATE TABLET 100 MG TAB PO SCH ×2 (08:43→17:02)
[2017-11-04] MEDS: PROMETHAZINE HCL 25 MG TAB PO SCH (08:43)
[2017-11-04] MEDS: VANCOMYCIN 1GM/NS 250 ML 250 ML IV SCH ×2 (09:02→20:48)
[2017-11-04] MEDS: SODIUM CHLORIDE 0.9% 1000ML 1,000 ML IV SCH ×2 (09:02→14:00)
[2017-11-04] MEDS: ENOXAPARIN SOD INJ 40 MG/0.4 ML SYR SC SCH (17:21)
[2017-11-05] VITALS: BP 100/56
[2017-11-05] MEDS: IPRATROPIUM BROMIDE 0.02% 2.5 ML NEB NEB SCH ×6 (03:05→23:23)
[2017-11-05] MEDS: ALBUTEROL SULF 0.083% NEB SOLN 3 ML NEB NEB SCH ×5 (03:05→19:32)
[2017-11-05 04:47] VITALS: BP 102/64
[2017-11-05] MEDS: ONDANSETRON HCL 4 MG ORAL DISINTEGRATING TAB SL SCH ×3 (05:14→18:09)
[2017-11-05 07:55] VITALS: BP 127/54
[2017-11-05 08:15] VITALS: BP 127/34
[2017-11-05] MEDS: DOXYCYCLINE HYCLATE TABLET 100 MG TAB PO SCH ×2 (08:40→18:09)
[2017-11-05] MEDS: VANCOMYCIN 1GM/NS 250 ML 250 ML IV SCH ×2 (08:40→20:23)
[2017-11-05] MEDS: PROMETHAZINE HCL 25 MG TAB PO SCH (08:40)
[2017-11-05] MEDS: AZTREONAM 2 GM VIAL IV SCH ×3 (08:40→22:08)
[2017-11-05] MEDS: PREDNISONE 20 MG TAB PO SCH (08:40)
[2017-11-05] MEDS: SODIUM CHLORIDE 0.9% 1000ML 1,000 ML IV SCH ×2 (10:10→19:00)
--- NOTE | 2017-11-05 11:09 | Diagnostic Imaging Report ---
PROCEDURE: X-RAY CHEST, TWO VIEWS COMPARISON: [facility], DX, CHEST 2 VIEWS, 11/02/2017, 17:29. INDICATIONS: LUNG CANCER, SHORTNESS OF BREATH FINDINGS: LUNGS: Worsening right-sided pneumonia. Left retrocardiac atelectasis. PLEURA: Small left pleural effusion. HEART \T\ MEDIASTINUM: The heart is within normal size-limits. BONES \T\ SOFT TISSUES: No acute findings. CONCLUSION: Worsening right-sided pneumonia. Sharif Kaiser D.O. Dictated by: Sharif Kaiser D.O. on 11/05/2017 at 11:13 Electronically approved by: Sharif Kaiser D.O. on 11/05/2017 at 11:13
[2017-11-05] MEDS: ENOXAPARIN SOD INJ 40 MG/0.4 ML SYR SC SCH (18:09)
[2017-11-05 20:02] VITALS: BP 119/62
[2017-11-06 00:20] VITALS: BP 96/56
[2017-11-06] MEDS: ALBUTEROL SULF 0.083% NEB SOLN 3 ML NEB NEB SCH ×2 (03:20→07:05)
[2017-11-06] MEDS: IPRATROPIUM BROMIDE 0.02% 2.5 ML NEB NEB SCH ×2 (03:20→07:05)
[2017-11-06 04:58] VITALS: BP 114/57
[2017-11-06] MEDS: ONDANSETRON HCL 4 MG ORAL DISINTEGRATING TAB SL SCH ×2 (06:00)
[2017-11-06] MEDS: SODIUM CHLORIDE 0.9% 1000ML 1,000 ML IV SCH (06:03)
[2017-11-06 08:00] VITALS: BP 112/63
[2017-11-06] MEDS: AZTREONAM 2 GM VIAL IV SCH (08:00)
[2017-11-06] MEDS: VANCOMYCIN 1GM/NS 250 ML 250 ML IV SCH (09:00)
[2017-11-06] MEDS: PROMETHAZINE HCL 25 MG TAB PO SCH (09:08)
[2017-11-06] MEDS: DOXYCYCLINE HYCLATE TABLET 100 MG TAB PO SCH (09:08)
[2017-11-06] MEDS: PREDNISONE 20 MG TAB PO SCH (09:08)
[2017-11-06 09:21] VITALS: BP 119/20
== END 2017-11-06 12:33 | disposition home or self-care (01) | DRG 193 ==
LOC: ER 16:52 → ERHOLD 20:03 → UNDOADMIN 20:20 → EDBEDREQ 20:31 → ERHOLD 11-03 03:34 → MED/SURG2 11-03 03:34
PROVIDERS: ADMIT Internal Medicine; ATTEND Internal Medicine
DX: J18.9 Pneumonia, unspecified organism (principal); J96.90 Respiratory failure, unspecified, unspecified whether with hypoxia or hypercapnia; C34.31 Malignant neoplasm of lower lobe, right bronchus or lung; C79.31 Secondary malignant neoplasm of brain; D61.818 Other pancytopenia; J44.9 Chronic obstructive pulmonary disease, unspecified; I10 Essential (primary) hypertension; Z88.5 Allergy status to narcotic agent; Z87.891 Personal history of nicotine dependence
CPT/HCPCS: 36415; 71046; 80053; 80202; 81001; 82550; 82553; 83605; 84484; 85025; 87040; 87070; 87086; 87205; 93005; 94640; 96361; 99284; J1650; J3370; J7030